=== PATIENT | female | born 1995 | race Caucasian/White ===

== ENCOUNTER 2018-06-30 10:34 | Inpatient (IN) | payer OTHER ==
[2018-06-30] MEDS ORDERED: MISOPROSTOL 200 MCG TAB PR (11:00)
[2018-06-30] MEDS ORDERED: OXYTOCIN 30 UNITS/LR 500 ML IV ×2 (11:00)
[2018-06-30] MEDS ORDERED: BUTORPHANOL 1 MG INJ IV (11:00)
[2018-06-30] MEDS ORDERED: CARBOPROST 250 MCG INJ IM (11:00)
[2018-06-30] MEDS ORDERED: IBUPROFEN 600 MG TAB PO (11:00)
[2018-06-30] MEDS: LACTATED RINGER'S 1,000 ML IV ×2 (11:51→18:09)
[2018-06-30 12:09] LABS: ADD MAN DIFF? NO
[2018-06-30 12:14] LABS: WHITE BLOOD COUNT 9.5 10^3/ul (4.8-10.8)
[2018-06-30 12:14] LABS: BASOPHIL # 0.1 10^3/ul (0.0-0.1); BASOPHILS % 0.5 % (0.0-2.0); EOSINOPHILS # 0.1 10^3/ul (0.0-0.5); EOSINOPHILS % 1.1 % (0.0-7.0); HEMATOCRIT 38.7 % (37.0-47.0); HEMOGLOBIN 13.3 g/dl (12.0-16.0); LYMPHOCYTES # 1.7 10^3/ul (0.8-2.9); MEAN CORPUSCULAR HEMOGLOBIN 30.4 pg (29.0-33.0); MEAN CORPUSCULAR HGB CONC 34.4 g/dl (32.0-37.0); MEAN CORPUSCULAR VOLUME 88.6 fl (82.0-101.0); MEAN PLATELET VOLUME 11.2 fl (7.4-10.4); MONOCYTE # 0.7 10^3/ul (0.3-0.9); MONOCYTES % 7.7 % (0.0-11.0); NEUTROPHIL # 6.8 10^3/ul (1.6-7.5); NEUTROPHILS % 71.8 % (39.0-77.0); PLATELET COUNT 244 10^3/UL (140-415); RED BLOOD COUNT 4.37 10^6/ul (4.20-5.40); RED CELL DISTRIBUTION WIDTH 13.1 % (11.5-14.5)
[2018-06-30 12:34] LABS: INR 0.83; PROTIME 11.5 Sec (11.9-14.9); PT RATIO 0.9
[2018-06-30 12:35] LABS: PARTIAL THROMBOPLASTIN TIME 26.8 Sec (23.0-35.0)
[2018-06-30] MEDS: MISOPROSTOL 50 MCG CAPSULE VAG ×3 (12:46→23:03)
[2018-06-30 13:09] LABS: HEPATITIS B SURFACE ANTIGEN NEGATIVE (NEGATIVE)
[2018-06-30 19:43] LABS: RAPID PLASMA REAGIN NONREACTIVE (NR)
[2018-07-01] MEDS: LACTATED RINGER'S 1,000 ML IV ×4 (01:59→20:39)
[2018-07-01] MEDS: OXYTOCIN 30 UNITS/LR 500 ML IV (10:16)
[2018-07-01] MEDS: BUTORPHANOL 2 MG INJ IV (13:18)
[2018-07-01] MEDS ORDERED: FENTAnyl 2MCG/ML-ROPIV 0.2% 100 ML (17:10)
[2018-07-01] MEDS ORDERED: NALOXONE (0.4 MG/ML) INJ IV (18:00)
[2018-07-01] MEDS: FENTAnyl 2MCG/ML-ROPIV 0.2% 100 ML BAG EPI (23:51)
[2018-07-02] MEDS ORDERED: ONDANSETRON 4 MG INJ IV (02:30)
[2018-07-02] MEDS ORDERED: OXYCODONE/ASPIRIN (4.88/325) TAB PO ×2 (02:30)
[2018-07-02] MEDS ORDERED: NACL 0.9% 3 ML SYG IV (02:30)
[2018-07-02] MEDS ORDERED: OXYTOCIN 30 UNITS/LR 500 ML IV (02:30)
[2018-07-02] MEDS ORDERED: METHYLERGONOVINE 0.2 MG INJ IM (02:30)
[2018-07-02] MEDS ORDERED: MISOPROSTOL 200 MCG TAB PR (02:30)
[2018-07-02] MEDS ORDERED: CARBOPROST 250 MCG INJ IM (02:30)
[2018-07-02] MEDS: ACETAMINOPHEN 325 MG TAB PO (03:03)
[2018-07-02] MEDS: LIDOCAINE 1% (MPF) 30 ML INJ INJ (03:30)
[2018-07-02] MEDS: METHYLERGONOVINE 0.2 MG INJ IM (03:31)
[2018-07-02] MEDS: OXYTOCIN 30 UNITS/LR 500 ML IV ×2 (03:32→09:23)
[2018-07-02] MEDS: IBUPROFEN 600 MG TAB PO ×3 (05:25→17:32)
[2018-07-02] MEDS: BENZOCAINE 20% 56 ML SPRAY TOP (05:26)
[2018-07-02] MEDS: WITCH HAZEL/GLYCERIN PAD PR (05:26)
[2018-07-03] MEDS: IBUPROFEN 600 MG TAB PO ×4 (00:27→16:03)
[2018-07-03 08:14] LABS: ADD MAN DIFF? NO
[2018-07-03 08:26] LABS: WHITE BLOOD COUNT 12.6 10^3/ul (4.8-10.8)
[2018-07-03 08:26] LABS: BASOPHIL # 0.1 10^3/ul (0.0-0.1); BASOPHILS % 0.5 % (0.0-2.0); EOSINOPHILS # 0.2 10^3/ul (0.0-0.5); EOSINOPHILS % 1.7 % (0.0-7.0); HEMATOCRIT 30.9 % (37.0-47.0); HEMOGLOBIN 10.3 g/dl (12.0-16.0); LYMPHOCYTES # 1.6 10^3/ul (0.8-2.9); LYMPHOCYTES % 12.6 % (15.0-51.0); MEAN CORPUSCULAR HEMOGLOBIN 30.6 pg (29.0-33.0); MEAN CORPUSCULAR HGB CONC 33.3 g/dl (32.0-37.0); MEAN CORPUSCULAR VOLUME 91.7 fl (82.0-101.0); MEAN PLATELET VOLUME 11.4 fl (7.4-10.4); MONOCYTE # 0.8 10^3/ul (0.3-0.9); MONOCYTES % 6.7 % (0.0-11.0); NEUTROPHIL # 9.8 10^3/ul (1.6-7.5); NEUTROPHILS % 77.8 % (39.0-77.0); PLATELET COUNT 175 10^3/UL (140-415); RED BLOOD COUNT 3.37 10^6/ul (4.20-5.40); RED CELL DISTRIBUTION WIDTH 13.5 % (11.5-14.5)
[2018-07-04] MEDS: IBUPROFEN 600 MG TAB PO ×5 (00:24→23:10)
[2018-07-04] MEDS: LANOLIN HPA 1 PKT TOP (00:25)
[2018-07-05] MEDS: IBUPROFEN 600 MG TAB PO ×2 (05:51→12:10)
== END 2018-07-05 16:10 | disposition home or self-care (01) | DRG 807 ==
LOC: L-D 10:34 → PP1 07-02 04:00
PROVIDERS: Obstetrics & Gynecology
PROC: 0W8NXZZ Division of Female Perineum, External Approach (ICD-10-PCS; 2018-06-30 10:00)
DX: O48.0 Post-term pregnancy (principal); Z37.0 Single live birth; O69.81X0 Labor and delivery complicated by cord around neck, without compression, not applicable or unspecified; O75.81 Maternal exhaustion complicating labor and delivery; Z3A.40 40 weeks gestation of pregnancy
CPT/HCPCS: 62319; 76815; 85025; 85610; 85730; 86592; 86850; 86900; 86901; 87340